=== PATIENT | female | born 1960 | race Caucasian/White ===

== ENCOUNTER → 2017-01-16 | Outpatient (CLI) | payer MEDICARE, OTHER ==
[~2017-01-16] MED LIST: ACET-1757 PO; ALBU6.7H PO; BORON PO; CALCIUM PO; CHLO4TAB22 PO; CHOL200040 PO; CIPR500T87 PO; COPPER PO; HYDROMORPHONE HCL PO; MAGNESIUM PO; MANGANESE PO; MUPI22OI TP; No meds per pt.; OXYC1TAB7 PO; OXYC5SOL8 PO; PHEN10TA36 PO; PHEN10VI PO; SULF1TAB24 PO; VITAMIN D PO; ZINC PO; [UNRECOGNIZED DRUG - OTHER] PO
== END | disposition home or self-care (01) ==
LOC: CFH 10:13
PROVIDERS: ATTEND Family Medicine
DX: Z12.31 Encounter for screening mammogram for malignant neoplasm of breast (principal)
CPT/HCPCS: G0202

== ENCOUNTER → 2018-04-17 | Outpatient (CLI) | payer MEDICARE | END | disposition home or self-care (01) | LOC: CFH 12:33 | PROVIDERS: ATTEND Family Medicine | DX: Z12.31 Encounter for screening mammogram for malignant neoplasm of breast (principal) | CPT/HCPCS: 77067 ==